=== PATIENT | male | born 1990 | race Hispanic/Latino ===

== ENCOUNTER 2017-03-08 10:38 | Emergency (ER) | payer OTHER ==
[2017-03-08 10:41] VITALS: BP 145/90; PULSE 68; RESP 18; TEMP 97.9; O2SAT 100
[2017-03-08] MEDS ORDERED: Bacitracin 500 Units/gm Oint Foilpak UD TOP ONE (11:04)
[2017-03-08] MEDS ORDERED: Lidocaine 1% Inj (20ml) INFIL ONE (11:04)
[2017-03-08] MEDS ORDERED: Bacitracin 500 Units/gm Oint Foilpak UD ONE (11:10)
[2017-03-08] MEDS ORDERED: Lidocaine 1% Inj (20ml) ONE (11:11)
--- NOTE | 2017-03-08 11:45 | C.PDOC ---
History Of Present Illness 26 year old male with no past medical history presents to the ED for evaluation of a laceration to the right anterior forearm sustained just prior to arrival. Patient states while on a job site, he cut himself with a sheet of metal. He denies numbness or tingling. Time Seen by Provider: 03/08/17 11:01 Chief Complaint (Nursing): Abnormal Skin Integrity History Per: Patient History/Exam Limitations: no limitations Onset/Duration Of Symptoms: Hrs Current Symptoms Are (Timing): Still Present Recent travel outside of the [place]: No Past Medical History Reviewed: Historical Data, Nursing Documentation, Vital Signs Vital Signs: Last Vital Signs Temp 97.9 F 03/08/17 10:41 Pulse 68 03/08/17 10:41 Resp 18 03/08/17 10:41 BP 145/90 03/08/17 10:41 Pulse Ox 100 03/08/17 11:45 Family History: States: Unknown Family Hx - Social History Hx Alcohol Use: Yes Hx Substance Use: No - Immunization History Hx Tetanus Toxoid Vaccination: No Hx Influenza Vaccination: No Hx Pneumococcal Vaccination: No Review Of Systems Constitutional: Negative for: Fever, Chills Cardiovascular: Negative for: Chest Pain Respiratory: Negative for: Shortness of Breath Musculoskeletal: Positive for: Arm Pain (right forearm laceration ) Physical Exam - Physical Exam Appears: Non-toxic, No Acute Distress Skin: Warm, Dry, Other (4 cm depp laceration, no tendon injury, to right anterior forearm. ) Head: Atraumatic Eye(s): bilateral: Normal Inspection Oral Mucosa: Moist Extremity: Normal ROM, No Tenderness, Capillary Refill (good capillary refill, less than two seconds ), No Deformity, No Swelling Neurological/Psych: Oriented x3, Normal Speech, Normal Cognition, Normal Motor, Normal Sensation ED Course And Treatment O2 Sat by Pulse Oximetry: 100 (room air ) Progress Note: Patient was given Tetanus shot and bacitracin was applied following laceration repair. Patient tolerated laceration repair well. Laceration - Laceration Repair Right forearm laceration Wound Length (In cm): 4 cm Description Of Wound: Linear Wound Cleansed With: Betadine, Sterile Saline Anesthesia: Lidocaine 1% Wound Examination: Irrigated With Saline, No FB With Wound Exploration, No Tendon Injury With Wound Exploration Wound Debridement/Revision: Wound Debrided Wound Closure: Suture (9 4-0 sutures and 1 deep 5-0 absorbable was used. ) Suture Technique And Material Used: Running, Nylon (4-0 ) Wound Complexity: Simple Disposition Counseled Patient/Family Regarding: Diagnosis, Need For Followup - Disposition Disposition: HOME/ ROUTINE Disposition Time: 11:43 Condition: STABLE Additional Instructions: Keep wound clean and dry. Change bandage daily, wash with soap and water, apply antibiotic ointment. Suture removal in 10 days. Return to ER for any sign of infection such as redness, swelling, purulent discharge from wound. 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 - Scribe Statement The provider has reviewed the documentation as recorded by the Scribe Jade David All medical record entries made by the Scribe were at my direction and personally dictated by me. I have reviewed the chart and agree that the record accurately reflects my personal performance of the history, physical exam, medical decision making, and the department course for this patient. I have also personally directed, reviewed, and agree with the discharge instructions and disposition.
== END 2017-03-08 11:57 | disposition home or self-care (01) ==
LOC: C.ER 10:38
DX: S51.811A Laceration without foreign body of right forearm, initial encounter (principal); W45.8XXA Other foreign body or object entering through skin, initial encounter; Z23 Encounter for immunization

== ENCOUNTER 2017-06-01 08:46 | Emergency (ER) | payer OTHER ==
[2017-06-01 09:02] VITALS: O2SAT 100
[2017-06-01] MEDS ORDERED: Fluorescein 1 mg Ophthalmic Strip ONE (09:17)
[2017-06-01] MEDS ORDERED: Tetracaine 0.5% Ophth (OR ONLY) ONE (09:18)
--- NOTE | 2017-06-01 09:28 | C.PDOC ---
History Of Present Illness Patient c/o redness and irritation of left eye that started after work 2 days ago. He was grinding and was sudden exposed to a welding flash. He is unsure whether he got a foreign body in the eye but since then has had redness and irritation. His vision is clear. His last tetanus was 3 months ago. Time Seen by Provider: 06/01/17 09:12 Chief Complaint (Nursing): Eye Problem History Per: Patient History/Exam Limitations: no limitations Onset/Duration Of Symptoms: Days (2) Current Symptoms Are (Timing): Still Present Severity: Moderate Wears Contact Lens?: No Associated Symptoms: Pain, FB Sensation Past Medical History Vital Signs: Last Vital Signs Temp 98.2 F 06/01/17 09:30 Pulse 66 06/01/17 09:30 Resp 18 06/01/17 09:30 BP 138/82 06/01/17 09:30 Pulse Ox 100 06/01/17 09:30 - Medical History PMH: No Chronic Diseases Surgical History: No Surg Hx Family History: States: Unknown Family Hx - Social History Hx Alcohol Use: Yes Hx Substance Use: No - Immunization History Hx Tetanus Toxoid Vaccination: Yes Hx Influenza Vaccination: No Hx Pneumococcal Vaccination: No Review Of Systems Except As Marked, All Systems Reviewed And Found Negative. Eyes: Positive for: Pain, Conjunctivae Inflammation, Redness. Negative for: Vision Change, Eyelid Inflammation Physical Exam - Physical Exam Appears: Well, No Acute Distress Skin: Normal Color, Warm, Dry Head: Atraumatic Eye(s): bilateral: PERRL, EOMI, left: Other (Corneal foreign body present) Neurological/Psych: Oriented x3, Normal Speech, Normal Cognition ED Course And Treatment O2 Sat by Pulse Oximetry: 100 - Physician Consult Information Time Consulting Physician Contacted: 09:37 Physician Contacted: Kaushal Cruz Outcome Of Conversation: Patient can go directly to his office now. Eye Treatment - Treatment Performed Eye Treatment: Other: (Tetracaine) Foreign Body Removal With: Cotton Tip Swab (unsuccessful) Disposition Counseled Patient/Family Regarding: Diagnosis - Disposition Referrals: Faheem Casas [Staff Provider] - Disposition: HOME/ ROUTINE Disposition Time: 09:26 Condition: STABLE Additional Instructions: Go directly to [facility] for evaluation by the production aide. Instructions: Eye Foreign Body (ED) Forms: [facility] (Libyan) - Clinical Impression Clinical Impression: Corneal foreign body
[2017-06-01 09:31] VITALS: BP 138/82; PULSE 66; RESP 18; TEMP 98.2
== END 2017-06-01 09:32 | disposition home or self-care (01) ==
LOC: C.ER 08:46
DX: T15.02XA Foreign body in cornea, left eye, initial encounter (principal); X58.XXXA Exposure to other specified factors, initial encounter; Y99.0 Civilian activity done for income or pay